=== PATIENT | female | born 1975 | race Two or more races ===

== ENCOUNTER 2020-12-27 13:07 | Emergency (ER) | payer SELFPAY ==
[~2020-12-27] VITALS: Ht 157.5 cm; Wt 75.7 kg
[2020-12-27] MEDS ORDERED: BENAZEPRIL HCL 10 MG TABLET PO ONE (14:30)
[2020-12-27] MEDS ORDERED: BENAZEPRIL HCL 10 MG TABLET ONE (15:39)
[2020-12-27] MEDS ORDERED: IBUPROFEN 600 MG TABLET ONE (15:46)
[2020-12-27 15:48] VITALS: BP 165/110
[2020-12-27] MEDS ORDERED: IBUPROFEN 600 MG TABLET PO ONE (16:00)
--- NOTE | 2020-12-27 16:03 | NUR ---
Patient discharged to home in stable condition. Written and verbal after care instructions given. Patient verbalizes understanding of instruction. Pt ambulatory with a steady gait
== END 2020-12-27 15:50 | disposition home or self-care (01) ==
LOC: ER 13:10
DX: S20.222A Contusion of left back wall of thorax, initial encounter (principal); S40.012A Contusion of left shoulder, initial encounter; S80.211A Abrasion, right knee, initial encounter; Y08.89XA Assault by other specified means, initial encounter; Y93.89 Activity, other specified; Y92.89 Other specified places as the place of occurrence of the external cause; Y99.8 Other external cause status
CPT/HCPCS: 72074-TC; 73030-TC